=== PATIENT | female | born 1955 | race Caucasian/White ===

== ENCOUNTER 2022-06-15 09:10 | Day surgery (SDC) | payer OTHER ==
[~2022-06-15] VITALS: Ht 154.9 cm; Wt 62.6 kg
[2022-06-15] MEDS ORDERED: diphenhydrAMINE 50 MG/ML VIAL ONE (10:46)
[2022-06-15] MEDS ORDERED: LIDOCAINE 2% 100 MG/5 ML UJET TP ONE (10:47)
[2022-06-15] MEDS ORDERED: fentaNYL citrate 0.05 MG/ML VIAL ONE (10:47)
[2022-06-15] MEDS ORDERED: MIDAZOLAM 5 MG/5 ML VIAL ONE (10:47)
[2022-06-15] MEDS ORDERED: MIDAZOLAM 2 MG/2 ML VIAL IV ONE (12:30)
[2022-06-15] MEDS ORDERED: FENTANYL C 0.1 MG/HR PATCH TD SCH (12:30)
[2022-06-15] MEDS ORDERED: fentaNYL citrate 0.05 MG/ML VIAL IVP ONE (12:40)
== END 2022-06-15 12:55 | disposition home or self-care (01) ==
LOC: MDS 09:10 → MMU 09:11 → MDS 12:55
PROVIDERS: ATTEND Internal Medicine Gastroenterology
DX: Z12.11 Encounter for screening for malignant neoplasm of colon (principal); K63.5 Polyp of colon; K57.30 Diverticulosis of large intestine without perforation or abscess without bleeding; E78.00 Pure hypercholesterolemia, unspecified; Z90.49 Acquired absence of other specified parts of digestive tract; Z20.822 Contact with and (suspected) exposure to COVID-19; Z79.899 Other long term (current) drug therapy
CPT/HCPCS: 45385; 87426; J2250; J3010; J1200